=== PATIENT | male | born 1945 | race Caucasian/White ===

== ENCOUNTER → 2020-06-01 | Outpatient (CLI) | payer MEDICARE, BC | END | disposition home or self-care (01) | LOC: LAB SHORT 16:02 → PLD 16:02 | DX: D48.5 Neoplasm of uncertain behavior of skin (principal) | CPT/HCPCS: 88305 ==

== ENCOUNTER → 2022-01-10 | Outpatient (CLI) | payer MEDICARE, BC | END | disposition home or self-care (01) | LOC: PLD 07:57 → LAB SHORT 07:57 | DX: L60.2 Onychogryphosis (principal); B35.1 Tinea unguium | CPT/HCPCS: 87220; 88305; 88312 ==

== ENCOUNTER 2023-01-27 11:41 | Day surgery (SDC) | payer MEDICARE, BC ==
[~2023-01-27] VITALS: Ht 160 cm; Wt 80.8 kg
[2023-01-27] MEDS ORDERED: TADA10TA (12:16)
[2023-01-27] MEDS ORDERED: POLYMYXIN B-TMP10 ML (12:16)
[2023-01-27] MEDS ORDERED: PRED FORTE5 M1 (12:16)
[2023-01-27] MEDS ORDERED: KETOROLAC TROMET3 ML (12:16)
[2023-01-27 13:57] VITALS: BP 109/77
--- NOTE | 2023-01-27 16:39 | NUR ---
01/27/23 1639 Charlie Mauricio IV REMOVED INTACT. SITE WNL.
== END 2023-01-27 16:30 | disposition home or self-care (01) ==
LOC: ORSCSDS 11:41
PROVIDERS: Orthopaedic Surgery
PROC: 0LB70ZZ Excision of Right Hand Tendon, Open Approach (ICD-10-PCS; principal; 2023-01-27 13:00)
DX: M67.441 Ganglion, right hand (principal); I10 Essential (primary) hypertension; E11.9 Type 2 diabetes mellitus without complications; M10.9 Gout, unspecified; E66.9 Obesity, unspecified; Z68.31 Body mass index [BMI] 31.0-31.9, adult; Z79.899 Other long term (current) drug therapy
CPT/HCPCS: 82947; 88305; J0690; J2001; J2250; J2704; J2795; J3010; J7120

== ENCOUNTER → 2024-03-11 | Outpatient (CLI) | payer MEDICARE, BC ==
[~2024-03-11] MED LIST: KETOROLAC TROMET3 ML; POLYMYXIN B-TMP10 ML; PRED FORTE5 M1; TADA10TA
== END | disposition home or self-care (01) ==
LOC: LAB 07:37 → LAB SHORT 07:37
DX: L60.2 Onychogryphosis (principal); B35.1 Tinea unguium
CPT/HCPCS: 88305; 88312

== ENCOUNTER → 2024-03-11 | Outpatient (CLI) | payer MEDICARE, BC | END | disposition home or self-care (01) | LOC: LAB 17:03 → LAB SHORT 17:03 | DX: B35.3 Tinea pedis (principal); B35.1 Tinea unguium; L60.2 Onychogryphosis | CPT/HCPCS: 87070; 87077; 87186; 87205; 87220; 88305; 88312 ==